=== PATIENT | female | born 1970 | race Hispanic/Latino ===

== ENCOUNTER 2017-03-09 14:35 | Emergency (ER) | payer OTHER ==
[2017-03-09 14:36] VITALS: BMI 46.0
[2017-03-09 14:55] VITALS: TEMP 98.5; O2SAT 98
--- NOTE | 2017-03-09 15:22 | ED PDOC ---
HPI: Female Pain Time Seen by Provider: 03/09/17 15:16 Chief Complaint (Nursing): Female Genitourinary History Per: Patient Onset/Duration Of Symptoms: Days (3) Current Symptoms Are (Timing): Still Present Severity: Moderate Pain Scale Rating Of: 3 Quality Of Discomfort: Burning Associated Symptoms: Urinary Symptoms. denies: Fever, Nausea, Vomiting, Back Pain Additional Complaint(s): Dysuria frequency x 3 days. Denies fever, Nausea or vomiting. Past Medical History Vital Signs: Last Vital Signs Temp 98.5 F 03/09/17 14:52 Pulse 87 03/09/17 14:52 Resp 16 03/09/17 14:52 BP 191/89 H 03/09/17 14:52 Pulse Ox 98 03/09/17 14:52 - Medical History PMH: Arthritis, Asthma, Diabetes, HTN Denies: Chronic Kidney Disease - Surgical History Surgical History: Appendectomy - Family History Family History: States: Unknown Family Hx - Immunization History Hx Tetanus Toxoid Vaccination: No Hx Influenza Vaccination: No Hx Pneumococcal Vaccination: No - Home Medications Home Medications: Ambulatory Orders Medication Instructions Recorded Valsartan [Diovan] 320 mg PO DAILY 04/18/14 Metformin HCl 1,000 mg PO BID 10/15/15 Metoprolol Succinate [Toprol XL] 50 mg PO DAILY 10/15/15 Naproxen [Naprosyn] 500 mg PO BID 10/15/15 Naproxen [Naprosyn] 500 mg PO Q12H #20 tab 10/15/15 SITagliptin [Januvia] 50 mg PO DAILY 10/15/15 traMADol [Ultram] 50 mg PO Q8 #10 tab 10/15/15 Ciprofloxacin HCl [Cipro] 500 mg PO BID #20 tab 03/09/17 - Allergies Allergies/Adverse Reactions: Allergies Allergy/AdvReac Type Severity Reaction Status Date / Time No Known Allergies Allergy Verified 04/18/14 09:27 Review of Systems Constitutional: Negative for: Fever Gastrointestinal: Negative for: Abdominal Pain Genitourinary Female: Positive for: Dysuria, Frequency Musculoskeletal: Negative for: Back Pain Physical Exam - Physical Exam Appears: Positive for: Non-toxic, No Acute Distress Gastrointestinal/Abdominal: Positive for: Bowel Sounds, Soft. Negative for: Tenderness Back: Negative for: L CVA Tenderness, R CVA Tenderness Extremity: Positive for: Normal ROM Neurologic/Psych: Positive for: Oriented - ECG O2 Sat by Pulse Oximetry: 98 Disposition - Clinical Impression Clinical Impression: Urinary tract infection - Patient ED Disposition Is Patient to be Admitted: No Counseled Patient/Family Regarding: Studies Performed, Diagnosis, Need For Followup, Rx Given - Disposition Referrals: [facility] [Outside] Disposition: Routine/Home Disposition Time: 15:35 Condition: FAIR Prescriptions: Ciprofloxacin HCl [Cipro] 500 mg PO BID #20 tab Instructions: Urinary Tract Infection in Women (ED) Forms: [employer] (Singaporean)
[2017-03-09 15:27] VITALS: BP 186/103; PULSE 91; RESP 18
== END 2017-03-09 15:45 | disposition home or self-care (01) ==
LOC: H.ER 14:35
DX: N39.0 Urinary tract infection, site not specified (principal); E11.9 Type 2 diabetes mellitus without complications; I10 Essential (primary) hypertension; J45.909 Unspecified asthma, uncomplicated

== ENCOUNTER 2017-03-18 13:22 | Emergency (ER) | payer OTHER ==
[2017-03-18 13:22] VITALS: BMI 46.0
[2017-03-18 13:30] VITALS: BP 196/80; PULSE 82; RESP 18; TEMP 97.3; O2SAT 99
[2017-03-18] MEDS ORDERED: Albuterol-Ipratrop 3 mg / 0.5 (3 ml) UD INH STA (13:55)
--- NOTE | 2017-03-18 13:58 | ED PDOC ---
HPI: Asthma Time Seen by Provider: 03/18/17 13:34 Chief Complaint (Nursing): Back Pain Chief Complaint (Provider): Asthma History Per: Patient History/Exam Limitations: no limitations Onset/Duration Of Symptoms: Days (x2 days) Current Symptoms Are (Timing): Still Present Additional Complaint(s): 47 year old female with a past medical history of asthma, hypertension, and diabetes who presents to the emergency department with a complaint of coughing, wheezing, and feeling short of breath x2 days. Associated with lower back pain. States that perfume at home was irritating her before she decided to come to the emergency department. Reports taking Extra Strength Tylenol for chronic back pain problems. Denies any prior admission in the back, chest pain, fever, or sputum with cough. Of note, patient tried to see her primary care doctor but he was not in the office today and had finished her asthma pump medication. PMD: Dr. Jose David Friedman MD Past Medical History Reviewed: Historical Data, Nursing Documentation, Vital Signs Vital Signs: Last Vital Signs Temp 97.3 F L 03/18/17 13:27 Pulse 82 03/18/17 13:27 Resp 18 03/18/17 13:27 BP 196/80 H 03/18/17 13:27 Pulse Ox 99 03/18/17 13:27 - Medical History PMH: Arthritis, Asthma, Diabetes, HTN Denies: Chronic Kidney Disease - Surgical History Surgical History: Appendectomy - Family History Family History: States: Diabetes, Hypertension - Social History Current smoker - smoking cessation education provided: No Alcohol: None Drugs: Denies - Immunization History Hx Tetanus Toxoid Vaccination: No Hx Influenza Vaccination: No Hx Pneumococcal Vaccination: No - Home Medications Home Medications: Ambulatory Orders Medication Instructions Recorded Valsartan [Diovan] 320 mg PO DAILY 04/18/14 Metformin HCl 1,000 mg PO BID 10/15/15 Metoprolol Succinate [Toprol XL] 50 mg PO DAILY 10/15/15 Naproxen [Naprosyn] 500 mg PO BID 10/15/15 Naproxen [Naprosyn] 500 mg PO Q12H #20 tab 10/15/15 SITagliptin [Januvia] 50 mg PO DAILY 10/15/15 traMADol [Ultram] 50 mg PO Q8 #10 tab 10/15/15 Ciprofloxacin HCl [Cipro] 500 mg PO BID #20 tab 03/09/17 Albuterol HFA [Ventolin HFA 90 2 puff IH [id number] #1 inh 03/18/17 mcg/actuation (8 g)] Azithromycin [Z-Myron] 250 mg PO ASDIR #6 tab 03/18/17 Prednisone 50 mg PO DAILY #4 tablet 03/18/17 - Allergies Allergies/Adverse Reactions: Allergies Allergy/AdvReac Type Severity Reaction Status Date / Time No Known Allergies Allergy Verified 04/18/14 09:27 Review of Systems ROS Statement: Except As Marked, All Systems Reviewed And Found Negative (As per HPI, otherwise negative) Constitutional: Negative for: Fever Cardiovascular: Negative for: Chest Pain Respiratory: Positive for: Cough, Shortness of Breath. Negative for: Sputum Physical Exam - Reviewed Nursing Documentation Reviewed: Yes Vital Signs Reviewed: Yes - Physical Exam Appears: Positive for: Well, Non-toxic, No Acute Distress Head Exam: Positive for: ATRAUMATIC, NORMAL INSPECTION, NORMOCEPHALIC Skin: Positive for: Normal Color, Warm, Dry ENT: Positive for: Normal ENT Inspection. Negative for: Pharyngeal Erythema Cardiovascular/Chest: Positive for: Regular Rate, Rhythm. Negative for: Murmur Respiratory: Positive for: Normal Breath Sounds. Negative for: Accessory Muscle Use, Wheezing, Respiratory Distress Extremity: Positive for: Normal ROM. Negative for: Pedal Edema Lymphatic: Positive for: Normal Exam. Negative for: Adenopathy Neurologic/Psych: Positive for: Alert, Oriented (x3) - ECG O2 Sat by Pulse Oximetry: 99 (RA) Pulse Ox Interpretation: Normal - Radiology X-Ray: Viewed By Me, Read By Radiologist X-Ray Interpretation: Infiltrates - Progress Re-evaluation Time: 17:06 Condition: Re-examined, Improved Medical Decision Making Medical Decision Making: Time: 1355 Initial Impression: Asthma exacerbation with wheezing and chronic lower back pain Initial Plan: --EKG --Chest x-ray --Duoneb 3 mg INH --Prednisone 60 mg PO --Reevaluation Time: 1455 --Chest x-ray FINDINGS: LUNGS: There is evidence of a small right lower lobe infiltrate consistent with pneumonia. No left lung infiltrates are seen. PLEURA: No significant pleural effusion identified. No pneumothorax apparent. CARDIOVASCULAR: Normal. OSSEOUS STRUCTURES: No significant abnormalities. VISUALIZED UPPER ABDOMEN: Normal. OTHER FINDINGS: None. IMPRESSION: Small right lower lobe pneumonia. No pleural effusion. No CHF. Time: 1707 Upon provider reevaluation patient is feeling better, is medically stable, and requires no further treatment in the ED at this time. Patient will be discharged with Rx for Albuterol HFA 2 puff IH, Azithromycin 250 mg PO, and Prednisone 50 mg daily. Counseling was provided and all questions were answered regarding diagnosis and need for follow up with primary care physician. There is agreement to discharge plan. Return if symptoms persist or worsen. Clinical Impression: Asthma Attack, Pneumonia, and Urinary Tract Infection Scribe~Attestation: Documented by Raina Roy, acting as a scribe for Dorothy García MD. Provider Scribe~Attestation: All medical record entries made by the Scribe were at my direction and personally dictated by me. I have reviewed the chart and agree that the record accurately reflects my personal performance of the history, physical exam, medical decision making, and the department course for this patient. I have also personally directed, reviewed, and agree with the discharge instructions and disposition. Disposition - Clinical Impression Clinical Impression: Asthma attack, Pneumonia, Urinary tract infection - Patient ED Disposition Is Patient to be Admitted: No Doctor Will See Patient In The: Office Counseled Patient/Family Regarding: Studies Performed, Diagnosis, Need For Followup - Disposition Referrals: Jose David Friedman MD [Family Provider] - Disposition: Routine/Home Disposition Time: 17:07 Condition: GOOD Additional Instructions: Take your medications as instructed. Follow up with your PCP in 2-3 days. Prescriptions: Albuterol HFA [Ventolin HFA 90 mcg/actuation (8 g)] 2 puff IH [id number] #1 inh Azithromycin [Z-Myron] 250 mg PO ASDIR #6 tab Prednisone 50 mg PO DAILY #4 tablet Instructions: Asthma (ED), Pneumonia (ED) Forms: [facility] ED School/Work Excuse
--- NOTE | 2017-03-18 14:57 | RAD ---
HISTORY: dyspnea COMPARISON: No prior. TECHNIQUE: Chest PA and lateral FINDINGS: LUNGS: There is evidence of a small right lower lobe infiltrate consistent with pneumonia. No left lung infiltrates are seen. PLEURA: No significant pleural effusion identified. No pneumothorax apparent. CARDIOVASCULAR: Normal. OSSEOUS STRUCTURES: No significant abnormalities. VISUALIZED UPPER ABDOMEN: Normal. OTHER FINDINGS: None. IMPRESSION: Small right lower lobe pneumonia. No pleural effusion. No CHF.
== END 2017-03-18 17:25 | disposition home or self-care (01) ==
LOC: H.ER 13:22
DX: J18.9 Pneumonia, unspecified organism (principal); J45.909 Unspecified asthma, uncomplicated; E11.9 Type 2 diabetes mellitus without complications; G89.29 Other chronic pain; I10 Essential (primary) hypertension

== ENCOUNTER 2017-07-27 13:27 | Emergency (ER) | payer MEDICAID, OTHER ==
[2017-07-27 13:27] VITALS: BMI 46.0
--- NOTE | 2017-07-27 14:26 | ED PDOC ---
HPI: Abdomen Time Seen by Provider: 07/27/17 13:40 Chief Complaint (Nursing): Abdominal Pain Chief Complaint (Provider): Abdominal Pain History Per: Patient History/Exam Limitations: no limitations Onset/Duration Of Symptoms: Days (1) Current Symptoms Are (Timing): Still Present Additional Complaint(s): 47 year old female presents to the emergency department with a complaint of nausea, vomiting, and epigastric abdominal pain x1 day. Describes pain comes in waves, comes and goes. Family also reports experiencing similar symptoms 2 days ago. Denies diarrhea and fever. PMD: Dr. Jose David Friedman MD Past Medical History Reviewed: Historical Data, Nursing Documentation, Vital Signs Vital Signs: Last Vital Signs Temp 97.0 F L 07/27/17 13:35 Pulse 76 07/27/17 15:30 Resp BP 124/78 07/27/17 15:30 Pulse Ox 98 07/27/17 18:38 - Medical History PMH: Arthritis, Asthma, Diabetes, HTN Denies: Chronic Kidney Disease - Surgical History Surgical History: Appendectomy - Family History Family History: States: Unknown Family Hx, Diabetes, Hypertension - Social History Current smoker - smoking cessation education provided: No Alcohol: None Drugs: Denies - Immunization History Hx Tetanus Toxoid Vaccination: No Hx Influenza Vaccination: No Hx Pneumococcal Vaccination: No - Home Medications Home Medications: Ambulatory Orders Medication Instructions Recorded Valsartan [Diovan] 320 mg PO DAILY 04/18/14 Metformin HCl 1,000 mg PO BID 10/15/15 Metoprolol Succinate [Toprol XL] 50 mg PO DAILY 10/15/15 Naproxen [Naprosyn] 500 mg PO BID 10/15/15 SITagliptin [Januvia] 50 mg PO DAILY 10/15/15 - Allergies Allergies/Adverse Reactions: Allergies Allergy/AdvReac Type Severity Reaction Status Date / Time No Known Allergies Allergy Verified 04/18/14 09:27 Review of Systems ROS Statement: Except As Marked, All Systems Reviewed And Found Negative (As per HPI, otherwise negative) Constitutional: Negative for: Fever Gastrointestinal: Positive for: Nausea, Vomiting, Abdominal Pain. Negative for : Diarrhea Physical Exam - Reviewed Nursing Documentation Reviewed: Yes Vital Signs Reviewed: Yes - Physical Exam Appears: Positive for: No Acute Distress Head Exam: Positive for: NORMAL INSPECTION Skin: Positive for: Normal Color, Warm, Dry ENT: Positive for: Normal ENT Inspection Neck: Positive for: Normal Cardiovascular/Chest: Positive for: Regular Rate, Rhythm Respiratory: Positive for: Normal Breath Sounds Gastrointestinal/Abdominal: Positive for: Soft, Tenderness (mild mid epigastric tenderness). Negative for: Normal Exam Extremity: Positive for: Normal ROM Neurologic/Psych: Positive for: Alert, Oriented (x3) - Laboratory Results Result Diagrams: 07/27/17 14:46 07/27/17 14:46 - ECG O2 Sat by Pulse Oximetry: 98 (RA) Pulse Ox Interpretation: Normal Medical Decision Making Medical Decision Making: Time: 1420 Initial impression: Abdominal pain, nausea, and vomiting rule out uti, tule out appendicitis, rule out gastroenteritis Initial plan: --CMP --Lipase --CBC w/ diff --Famotidine 20 mg IVP --Sodium Chloride 1L IV --Ondansetron ODT 4 mg PO --Reevaluation Time: 1446 --WBC: 15.0 (H) pt will need CT ap. Time: 1521 --Insulin 6 units SC Time: 1526 --Iohexol 50 ml PO --Abd Pelvis PO & IV CT Time: 1535 --Morphine 4 mg IV Time: 1556 --Patient feels nauseous. --Ondansetron ODT 4 mg PO Time: 1900 --Patient is transferred to Dr. Dias. --Pending CT scan and reevaluation and repeat glucose. Scribe Attestation: Documented by Raina Roy, acting as a scribe for Anitha Miranda MD Provider Scribe Attestation: All medical record entries made by the Scribe were at my direction and personally dictated by me. I have reviewed the chart and agree that the record accurately reflects my personal performance of the history, physical exam, medical decision making, and the department course for this patient. I have also personally directed, reviewed, and agree with the discharge instructions and disposition. Disposition - Clinical Impression Clinical Impression: Abdominal pain - Patient ED Disposition Is Patient to be Admitted: No - Disposition Disposition: Transfer of Care Disposition Time: 19:00 Condition: STABLE Forms: [employer] (Iranian) Patient Signed Over To: Aldair Dias
[2017-07-27] MEDS ORDERED: Sodium Chloride 0.9% 1,000 ML IV STA (14:34)
[2017-07-27 14:52] LABS: BASO % 0.2 % (0.0-2.0); HEMOGLOBIN 16.7 g/dL (12.0-16.0); LYMPH # 1.4 K/uL (1.0-4.3); LYMPH % 9.1 % (20.0-40.0); MEAN CELL VOLUME 85.1 fl (81.0-99.0); MEAN CORPUSCULAR HEMOGLOBIN 28.5 pg (27.0-31.0); MEAN CORPUSCULAR HGB CONC 33.5 g/dL (33.0-37.0); MEAN PLATELET VOLUME 8.4 fl (7.2-11.7); MONO # 0.3 K/uL (0.0-0.8); MONO % 2.2 % (0.0-10.0); NEUT # 13.3 K/uL (1.8-7.0); NEUT % 88.5 % (50.0-75.0); NRBC % 0.1 % (0.0-0.0); PLATELET COUNT 293 K/uL (130-400); RBC 5.84 Mil/uL (3.80-5.20); RED CELL DISTRIBUTION WIDTH 13.7 % (11.5-14.5)
[2017-07-27 15:07] LABS: ALB/GLOB RATIO 1.1 (1.0-2.1); ALBUMIN 4.5 g/dL (3.5-5.0); ALT/SGPT 51 U/L (9-52); AST/SGOT 33 U/L (14-36); BLOOD UREA NITROGEN 11 mg/dl (7-17); GFR AFRICAN-AMERICAN > 60; GFR NON-AFRICAN AMERICAN > 60; LIPASE 83 U/L (23-300)
[2017-07-27] MEDS ORDERED: Insulin Regular 100 units/ml SC STA (15:21)
[2017-07-27] MEDS ORDERED: Iohexol 240 (50 ml) PO ONE (15:26)
[2017-07-27] MEDS ORDERED: Insulin Regular 100 units/ml ONE (15:29)
[2017-07-27] MEDS ORDERED: Iohexol 240 (50 ml) ONE (15:34)
[2017-07-27 15:37] LABS: LYMPHOCYTE 11 % (20-50); MONOCYTE 2 % (0-10); NEUTROPHIL 87 % (42-75); PLATELET ESTIMATE NORMAL (NORMAL); TOTAL CELLS COUNTED 100
[2017-07-27] MEDS ORDERED: Iohexol 300 100 ML IJ ONE ×2 (16:10→16:34)
[2017-07-27] MEDS ORDERED: Sodium Chloride 0.9% 100 ML ONE (16:34)
--- NOTE | 2017-07-27 19:09 | ED PDOC ---
- Laboratory Results Result Diagrams: 07/27/17 14:46 07/27/17 14:46 - ECG O2 Sat by Pulse Oximetry: 98 (RA) Medical Decision Making Medical Decision Making: Time: 1899 --Patient endorsed from Dr. Welsh to me. --Pending CT scan, reevaluation, and repeat glucose. Time: 2035 --Abd CT FINDINGS: Lung bases: Heart size is normal. There is a hiatal hernia. There is minimal atelectasis or scarring at the lung bases ABDOMEN: Liver: There is fatty infiltration of the liver.The liver is enlarged. Gallbladder and bile ducts: unremarkable Pancreas: unremarkable Spleen: Spleen is mildly enlarged. Adrenals: unremarkable Kidneys and ureters: There is focal right renal scarring. Left kidney is unremarkable. There is no pelvocaliectasis or ureterectasis. Stomach and bowel: Stomach is partially distended with contrast. Rotation is normal. There is no small bowel obstruction. Terminal ileum is unremarkable. Appendix is not visualized. There is no pericecal inflammation. Cecum is low in the pelvis. Colon is incompletely distended which limits evaluation. PELVIS: Appendix: See stomach and bowel Bladder: unremarkable Reproductive: Uterus and adnexal structures are unremarkable. ABDOMEN and PELVIS: Intraperitoneal space: There is no free air or free fluid. Bones/joints: There are no acute osseous abnormalities. There is early degenerative change. Soft tissues: There is a small fat containing umbilical hernia. Vasculature: Vascular structures are unremarkable. Lymph nodes: There is no pathologic adenopathy. IMPRESSION: Hepatosplenomegaly with fatty infiltration liver; no bowel obstruction Additional nonemergent findings as described above 20: 55 -Upon reevaluation patient still has epigastric pain and chest pain, ordered Reglan and Protonix. 22: 40 -Patient reports no improvement of symptoms, ordered Carafate 23:55 -Patient states she feels better. She is medically stable for discharge. Diagnosis is gastritis and GERD. Patient advised to follow up with PMD. Scribe Attestation: Documented by Raina Roy & Martell Clements, acting as a scribe for Aldair Dias MD Provider Scribe Attestation: All medical record entries made by the Scribe were at my direction and personally dictated by me. I have reviewed the chart and agree that the record accurately reflects my personal performance of the history, physical exam, medical decision making, and the department course for this patient. I have also personally directed, reviewed, and agree with the discharge instructions and disposition. Disposition - Clinical Impression Clinical Impression: Gastritis - POA Present On Arrival: None - Disposition Disposition: Routine/Home Disposition Time: 23:55 Condition: STABLE Prescriptions: Esomeprazole Magnesium [Nexium] 20 mg PO QAM #30 ecc Instructions: Gastritis, Stomach Ache and Stomach Upset Forms: [employer] (Turkmen)
[2017-07-27 19:14] LABS: SQUAMOUS EPITHIAL 6 /hpf (0-5); URINE BILIRUBIN NEGATIVE (NEGATIVE); URINE BLOOD SMALL (NEGATIVE); URINE CLARITY SLIGHTY-CLOUDY (Clear); URINE COLOR YELLOW (YELLOW); URINE GLUCOSE (UA) >=500 mg/dL (Normal); URINE LEUKOCYTE ESTERASE NEG Leu/uL (Negative); URINE PROTEIN 100 mg/dL (NEGATIVE); URINE UROBILINOGEN 0.2-1.0 mg/dL (0.2-1.0)
--- NOTE | 2017-07-27 20:36 | CT ---
EXAM: CT Abdomen and Pelvis With Intravenous Contrast EXAM DATE/TIME: 07/27/2017 3:26 PM CLINICAL HISTORY: 47 years old, female; Pain; Abdominal pain; Epigastric; Patient HX: Patient C/O of nausea, vomiting, and epigastric pain TECHNIQUE: Axial computed tomography images of the abdomen and pelvis with intravenous contrast. All CT scans at this facility use one or more dose reduction techniques, viz.: automated exposure control; ma/kV adjustment per patient size (including targeted exams where dose is matched to indication; i.e. head); or iterative reconstruction technique. Coronal and sagittal reformatted images were created and reviewed. CONTRAST: 95 mL of omnipaque 300 administered intravenously. COMPARISON: There are no prior studies for comparison. FINDINGS: Lung bases: Heart size is normal. There is a hiatal hernia. There is minimal atelectasis or scarring at the lung bases ABDOMEN: Liver: There is fatty infiltration of the liver.The liver is enlarged. Gallbladder and bile ducts: unremarkable Pancreas: unremarkable Spleen: Spleen is mildly enlarged. Adrenals: unremarkable Kidneys and ureters: There is focal right renal scarring. Left kidney is unremarkable. There is no pelvocaliectasis or ureterectasis. Stomach and bowel: Stomach is partially distended with contrast. Rotation is normal. There is no small bowel obstruction. Terminal ileum is unremarkable. Appendix is not visualized. There is no pericecal inflammation. Cecum is low in the pelvis. Colon is incompletely distended which limits evaluation. PELVIS: Appendix: See stomach and bowel Bladder: unremarkable Reproductive: Uterus and adnexal structures are unremarkable. ABDOMEN and PELVIS: Intraperitoneal space: There is no free air or free fluid. Bones/joints: There are no acute osseous abnormalities. There is early degenerative change. Soft tissues: There is a small fat containing umbilical hernia. Vasculature: Vascular structures are unremarkable. Lymph nodes: There is no pathologic adenopathy. IMPRESSION: Hepatosplenomegaly with fatty infiltration liver; no bowel obstruction Additional nonemergent findings as described above.
[2017-07-27] MEDS ORDERED: Sucralfate 1 gm/10 ml Oral Susp UD PO STA (22:38)
[2017-07-27] MEDS ORDERED: Sucralfate 1 gm/10 ml Oral Susp UD ONE (22:44)
[2017-07-28 00:14] VITALS: BP 163/70; PULSE 99; RESP 18; TEMP 98.3
[2017-07-28 01:36] VITALS: O2SAT 98
== END 2017-07-28 00:20 | disposition home or self-care (01) ==
LOC: H.ER 13:27
DX: K29.70 Gastritis, unspecified, without bleeding (principal); E11.9 Type 2 diabetes mellitus without complications; I10 Essential (primary) hypertension; J45.909 Unspecified asthma, uncomplicated; K21.9 Gastro-esophageal reflux disease without esophagitis; K76.0 Fatty (change of) liver, not elsewhere classified; Z79.4 Long term (current) use of insulin
CPT/HCPCS: 74177; 80053; 81003; 81025; 82948; 83690; 85025; 87086; 96361; 96374; 96375; 99284; C9113; J2765; J7040; Q9966; Q9967

== ENCOUNTER 2017-07-29 14:06 | Inpatient (IN) | payer MEDICAID ==
[2017-07-29 14:06] VITALS: BMI 46.0
[2017-07-29] MEDS ORDERED: Sodium Chloride 0.9% 1,000 ML IV STA ×2 (14:33→17:14)
--- NOTE | 2017-07-29 14:40 | ED PDOC ---
HPI: Abdomen Time Seen by Provider: 07/29/17 14:32 Chief Complaint (Nursing): GI Problem Chief Complaint (Provider): Abdominal Pain History Per: Patient History/Exam Limitations: no limitations Onset/Duration Of Symptoms: Days (x3) Current Symptoms Are (Timing): Still Present Additional Complaint(s): 47 year old female presented to ED complaining of abdominal pain with onset of . Patient reports she came to this hospital a few days ago but upon returning home, symptoms returned. Patient indicates taking nexium today and vomiting immediately after. Denies fever, chills and diarrhea. PCP: Jose David Hurtado Past Medical History Reviewed: Historical Data, Nursing Documentation, Vital Signs Vital Signs: Last Vital Signs Temp 97.9 F 07/29/17 18:56 Pulse 90 07/29/17 19:24 Resp 19 07/29/17 18:56 BP 157/85 H 07/29/17 18:56 Pulse Ox 100 07/29/17 19:24 - Medical History PMH: Arthritis, Asthma, Diabetes, HTN Denies: Chronic Kidney Disease - Surgical History Surgical History: Appendectomy - Family History Family History: States: Unknown Family Hx, Diabetes, Hypertension - Immunization History Hx Tetanus Toxoid Vaccination: No Hx Influenza Vaccination: No Hx Pneumococcal Vaccination: No - Home Medications Home Medications: Ambulatory Orders Medication Instructions Recorded Valsartan [Diovan] 320 mg PO DAILY 04/18/14 Metformin HCl 1,000 mg PO BID 10/15/15 Metoprolol Succinate [Toprol XL] 50 mg PO DAILY 10/15/15 Naproxen [Naprosyn] 500 mg PO BID 10/15/15 SITagliptin [Januvia] 50 mg PO DAILY 10/15/15 Esomeprazole Magnesium [Nexium] 20 mg PO QAM #30 ecc 07/27/17 - Allergies Allergies/Adverse Reactions: Allergies Allergy/AdvReac Type Severity Reaction Status Date / Time No Known Allergies Allergy Verified 04/18/14 09:27 Review of Systems ROS Statement: Except As Marked, All Systems Reviewed And Found Negative Constitutional: Negative for: Fever, Chills Gastrointestinal: Positive for: Vomiting, Abdominal Pain. Negative for: Diarrhea Physical Exam - Reviewed Nursing Documentation Reviewed: Yes Vital Signs Reviewed: Yes - Physical Exam Appears: Positive for: Non-toxic Head Exam: Positive for: ATRAUMATIC, NORMAL INSPECTION, NORMOCEPHALIC Skin: Positive for: Normal Color Eye Exam: Positive for: Normal appearance Neck: Positive for: Normal, Painless ROM Gastrointestinal/Abdominal: Positive for: Tenderness (RUQ, epigastric tenderness ) Extremity: Positive for: Normal ROM Neurologic/Psych: Positive for: Alert, Oriented - Laboratory Results Result Diagrams: 07/29/17 15:39 07/29/17 15:39 - ECG ECG: Positive for: Interpreted By Me, Viewed By Me ECG Rhythm: Positive for: Sinus Rhythm (normal). Negative for: ST/T Changes Interpretation Of ECG: T wave inversion at lead III. Rate: 90 O2 Sat by Pulse Oximetry: 100 (RA) Pulse Ox Interpretation: Normal - Progress ED Course And Treament: FINDINGS: LIVER: Measures 24 cm in length. Diffusely increased echogenicity of the liver parenchyma. Consistent with fatty infiltration. Smooth contour. No mass. No intrahepatic biliary ductal dilatation. GALLBLADDER: Cholelithiasis. Thickened wall, up to 5 mm. No pericholecystic fluid. Negative sonographic Zendejas sign. Findings equivocal for cholecystitis. COMMON BILE DUCT: Measures 5 mm. No stones. No dilatation. PANCREAS: Unremarkable as visualized. No mass. No ductal dilatation. RIGHT KIDNEY: Measures 12.2 cm in length. Normal echogenicity. No calculus, mass, or hydronephrosis. AORTA: No aneurysmal dilatation. IVC: Unremarkable. OTHER FINDINGS: None . IMPRESSION: Hepatomegaly with fatty infiltration of the liver. Cholelithiasis with nonspecific mural thickening but no other signs to suggest cholecystitis. ns 1 liter x 2 morphine 4 mg iv x 1 dose pepcid 20 mg i vx 1 dose zofran 4 mg odt re-evaluated with persistent ruq tenderness noted. SEEN BY SURGERY. D/W DR. CHAHAL. WILL D/W DR. ZULETA FOR ADMISSION AND SURGERY TOMORROW. D/W DR. ZULETA ZOSYN 3.375GM IV X 1 DOSE Medical Decision Making Medical Decision Making: Initial Impression: Abdominal pain Initial Plan: ECG CMP Lipase Troponin ED urine ED urine dipstick CBC Famotidine 20mg IV Morphine 4mg IV Sodium chloride 1000mL IV Ondansetron 4mg PO US abdomen Scribe Attestation: Documented by Dov Martinez acting as a scribe for Alan EDWARDS. Provider Scribe Attestation: All medical record entries made by the Scribe were at my direction and personally dictated by me. I have reviewed the chart and agree that the record accurately reflects my personal performance of the history, physical exam, medical decision making, and the department course for this patient. I have also personally directed, reviewed, and agree with the discharge instructions and disposition. Disposition - Clinical Impression Clinical Impression: Cholecystitis - Patient ED Disposition Is Patient to be Admitted: Yes - Disposition Disposition Time: 19:24 Condition: FAIR
[2017-07-29] MEDS ORDERED: Morphine 4 MG/ML VIAL ONE (14:58)
[2017-07-29] MEDS ORDERED: Famotidine 20mg/50ml 20 MG in Premixed IV 50 EA IVPB STA (15:28)
[2017-07-29 15:42] LABS: BASO # 0.1 K/uL (0.0-0.2); BASO % 0.6 % (0.0-2.0); EOS # 0.1 K/uL (0.0-0.7); EOS % 0.8 % (0.0-4.0); HEMOGLOBIN 16.7 g/dL (12.0-16.0); LYMPH # 1.6 K/uL (1.0-4.3); LYMPH % 13.9 % (20.0-40.0); MEAN CELL VOLUME 85.5 fl (81.0-99.0); MEAN CORPUSCULAR HEMOGLOBIN 28.9 pg (27.0-31.0); MEAN CORPUSCULAR HGB CONC 33.9 g/dL (33.0-37.0); MEAN PLATELET VOLUME 7.8 fl (7.2-11.7); MONO # 0.5 K/uL (0.0-0.8); MONO % 4.8 % (0.0-10.0); NEUT # 9.3 K/uL (1.8-7.0); NEUT % 79.9 % (50.0-75.0); NRBC % 0.1 % (0.0-0.0); RBC 5.77 Mil/uL (3.80-5.20); RED CELL DISTRIBUTION WIDTH 13.8 % (11.5-14.5); WHITE BLOOD COUNT 11.6 K/uL (4.8-10.8)
[2017-07-29] MEDS ORDERED: Morphine 4 MG/ML VIAL IV ONE (15:45)
[2017-07-29 16:00] LABS: VENOUS BLOOD GAS BASE EXCESS 5.5 mmol/L (0.0-2.0); VENOUS BLOOD GAS PCO2 51 mmHg (40-60); VENOUS BLOOD GAS PO2 23 mm/Hg (30-55)
[2017-07-29 16:12] LABS: ALB/GLOB RATIO 1.1 (1.0-2.1); ALBUMIN 4.3 g/dL (3.5-5.0); ALT/SGPT 54 U/L (9-52); AST/SGOT 34 U/L (14-36); BLOOD UREA NITROGEN 17 mg/dl (7-17); CALCIUM 9.1 mg/dL (8.4-10.2); GFR AFRICAN-AMERICAN > 60; GFR NON-AFRICAN AMERICAN > 60; LIPASE 79 U/L (23-300)
[2017-07-29] MEDS ORDERED: Famotidine 20mg/50ml 20 MG/50 ML BAG IVPB ONE (16:12)
--- NOTE | 2017-07-29 17:27 | US ---
HISTORY: ruq pain COMPARISON: None. TECHNIQUE: Sonographic evaluation of the right upper quadrant of the abdomen. FINDINGS: LIVER: Measures 24 cm in length. Diffusely increased echogenicity of the liver parenchyma. Consistent with fatty infiltration. Smooth contour. No mass. No intrahepatic biliary ductal dilatation. GALLBLADDER: Cholelithiasis. Thickened wall, up to 5 mm. No pericholecystic fluid. Negative sonographic Zendejas sign. Findings equivocal for cholecystitis. COMMON BILE DUCT: Measures 5 mm. No stones. No dilatation. PANCREAS: Unremarkable as visualized. No mass. No ductal dilatation. RIGHT KIDNEY: Measures 12.2 cm in length. Normal echogenicity. No calculus, mass, or hydronephrosis. AORTA: No aneurysmal dilatation. IVC: Unremarkable. OTHER FINDINGS: None . IMPRESSION: Hepatomegaly with fatty infiltration of the liver. Cholelithiasis with nonspecific mural thickening but no other signs to suggest cholecystitis.
[2017-07-29] MEDS ORDERED: Piperacillin/Tazobact 3.375 GM in Sodium Chloride 0.9% 100 ML IVPB STA (19:09)
[2017-07-29] MEDS ORDERED: HYDROmorphone 0.5 mg/0.5 ml ISec IVP PRN (19:20)
--- NOTE | 2017-07-29 19:38 | CP.PCM.CON ---
<Rodrick Spears - Last Filed: 07/29/17 21:23> History of Present Illness - History of Present Illness History of Present Illness: Surgery 47 F w PMH of obesity (BMI 45) and hiatal hernia came with persistent epigastric and RUQ pain started 5 days ago. Pain started around epigastric area and now pain is more around the RUQ. Sudden onset of pain worsening after eating. Pain is dull and burning. Tried nexium but didn't relieve the pain. Pain also radiates to the back. Associated with nausea and vomiting. Non bilious and non bloody. Pt went to ED in [facility] [place] when pain started , had the CT taken, she was diagnosed with gastroenteritis and was sent home. two days later , pt came to [place] ED, with persistent abdominal pain and vomiting. CT was taken and CT result was unremarkable except hepatomegaly and fatty liver. She was sent home with Nexium. Pain became worsen and pt presented today again at [place] ED. Denies fever, chills, diarrhea, hematemesis, hematochezia, hematuria , melena. Pt has EGD in 2015 the past to evaluate for weight loss surgery and showed hiatal hernia. Pt didn't undergo sx. Patient doesn;t usually take PPI. US shows cholelithiasis and thicken GB wall. Surgery is consulted to evaluate for cholecystitis. PHM : DM , HTN, Asthma, obesity, hiatal hernia, H pylori PSH: appendectomy , x3 SS: former smoker, social etOH, denies elicit drug use. Review of Systems - Review of Systems Review of Systems: See HPI Past Patient History - Infectious Disease Hx of Infectious Diseases: None - Past Medical History & Family History Past Medical History?: Yes - Past Social History Smoking Status: Former Smoker Alcohol: Occasional Drugs: Denies - CARDIAC Hx Hypertension: Yes - PULMONARY Hx Asthma: Yes - NEUROLOGICAL Hx Neurological Disorder: No - HEENT Hx HEENT Problems: No - RENAL Hx Chronic Kidney Disease: No - ENDOCRINE/METABOLIC Hx Endocrine Disorders: Yes Hx Diabetes Mellitus Type 2: Yes - HEMATOLOGICAL/ONCOLOGICAL Hx Blood Disorders: No - INTEGUMENTARY Hx Dermatological Problems: No - MUSCULOSKELETAL/RHEUMATOLOGICAL Hx Arthritis: Yes - GASTROINTESTINAL Hx Gastrointestinal Disorders: Yes Other/Comment: DIARRHEA,RECTAL BLEEDING - GENITOURINARY/GYNECOLOGICAL Hx Genitourinary Disorders: No - PSYCHIATRIC Hx Psychophysiologic Disorder: No Hx Substance Use: No - SURGICAL HISTORY Hx Appendectomy: Yes - ANESTHESIA Hx Anesthesia: Yes Hx Anesthesia Reactions: Yes (NAUSEA/VOMITING) Hx Malignant Hyperthermia: No Meds Allergies/Adverse Reactions: Allergies Allergy/AdvReac Type Severity Reaction Status Date / Time No Known Allergies Allergy Verified 04/18/14 09:27 - Medications Medications: Current Medications Hydromorphone HCl (Dilaudid) 1 mg IVP Q4 PRN PRN Reason: Pain, severe (8-10) Piperacillin Sod/Tazobactam (Sod 3.375 gm/ Sodium Chloride) 100 mls @ 100 mls/ hr IVPB STAT STA PRN Reason: Protocol Stop: 07/29/17 20:08 Sodium Chloride (Sodium Chloride 0.9%) 1,000 mls @ 150 mls/hr IV .Q6H40M [facility] Stop: 07/30/17 19:18 Ondansetron HCl (Zofran Inj) 4 mg IVP Q4 PRN PRN Reason: Nausea/Vomiting Physical Exam - Constitutional Appears: No Acute Distress - Head Exam Head Exam: ATRAUMATIC, NORMAL INSPECTION, NORMOCEPHALIC - Eye Exam Eye Exam: EOMI, Normal appearance, PERRL Pupil Exam: NORMAL ACCOMODATION, PERRL - ENT Exam ENT Exam: Mucous Membranes Moist, Normal Exam - Neck Exam Neck exam: Positive for: Normal Inspection - Respiratory Exam Respiratory Exam: Clear to Auscultation Bilateral, NORMAL BREATHING PATTERN - Cardiovascular Exam Cardiovascular Exam: REGULAR RHYTHM - GI/Abdominal Exam GI & Abdominal Exam: Normal Bowel Sounds, Soft, Tenderness. absent: Distended, Firm, Guarding, Rigid Additional comments: Epigastric TTP. RUQ TTP . Obese - Extremities Exam Extremities exam: Positive for: full ROM, normal inspection - Back Exam Back exam: NORMAL INSPECTION - Neurological Exam Neurological exam: Alert, CN II-XII Intact, Normal Gait, Oriented x3, Reflexes Normal - Psychiatric Exam Psychiatric exam: Normal Affect, Normal Mood - Skin Skin Exam: Dry, Intact, Normal Color, Warm Results - Vital Signs Recent Vital Signs: Last Vital Signs Temp 97.9 F 07/29/17 18:56 Pulse 90 07/29/17 19:06 Resp 19 07/29/17 18:56 BP 157/85 H 07/29/17 18:56 Pulse Ox 100 07/29/17 19:06 - Labs Result Diagrams: 07/29/17 15:39 07/29/17 15:39 Labs: Laboratory Results - last 24 hr 07/29/17 07/29/17 07/29/17 15:39 15:39 15:57 WBC 11.6 H RBC 5.77 H Hgb 16.7 H Hct 49.3 H MCV 85.5 MCH 28.9 MCHC 33.9 RDW 13.8 Plt Count 266 MPV 7.8 Neut % (Auto) 79.9 H Lymph % (Auto) 13.9 L [place] % (Auto) 4.8 Eos % (Auto) 0.8 Baso % (Auto) 0.6 Neut # (Auto) 9.3 H Lymph # (Auto) 1.6 [place] # (Auto) 0.5 Eos # (Auto) 0.1 Baso # (Auto) 0.1 pO2 23 L VBG pH 7.40 VBG pCO2 51 VBG HCO3 27.7 VBG Total CO2 33.2 H VBG O2 Sat (Calc) 46.2 VBG Base Excess 5.5 H VBG Potassium 3.7 Glucose 165 H Lactate 1.8 FiO2 21.0 Sodium 140 136.0 Potassium 3.7 Chloride 96 L 99.0 Carbon Dioxide 27 Anion Gap 21 H BUN 17 Creatinine 0.6 L Est GFR ( Amer) > 60 Est GFR (Non-Af Amer) > 60 Random Glucose 164 H Calcium 9.1 Total Bilirubin 0.7 AST 34 ALT 54 H Alkaline Phosphatase 99 Troponin I 0.0500 Total Protein 8.4 H Albumin 4.3 Globulin 4.1 H Albumin/Globulin Ratio 1.1 Lipase 79 Venous Blood Potassium 3.7 Assessment & Plan - Assessment and Plan (Free Text) Assessment: 47 F w h/o H pylori and hiatal hernia : Symptomatic cholelithiasis v Cholecystitis Leukocytosis improved from previous visit: 15k-> 11.6k US: cholelithiasis with gallbladder wall thickening -CLD , NPO after midnight -Possible OR for lap skip -IVF -ABX -Nausea/pain control -f/u H pylori ag -CBC/ CMP / coag in AM DW Dr. Jeter <Trevin Jeter - Last Filed: 07/30/17 14:23> Meds - Medications Medications: Current Medications Hydromorphone HCl (Dilaudid) 1 mg IVP Q4 PRN PRN Reason: Pain, severe (8-10) Sodium Chloride (Sodium Chloride 0.9%) 1,000 mls @ 150 mls/hr IV .Q6H40M [facility] Stop: 07/30/17 19:18 Last Admin: 07/30/17 02:10 Dose: Not Given Lactated Ringer's (Lactated Ringer's) 1,000 mls @ 150 mls/hr IV .Q6H40M [facility] Last Admin: 07/30/17 05:38 Dose: 150 mls/hr Acetaminophen (Ofirmev) 100 mls @ 400 mls/hr IVPB ONCE ONE PRN Reason: Protocol Stop: 07/30/17 14:29 Ondansetron HCl (Zofran Inj) 4 mg IVP Q4 PRN PRN Reason: Nausea/Vomiting Ondansetron HCl (Zofran Odt) 4 mg PO Q8H PRN PRN Reason: Nausea/Vomiting Pantoprazole Sodium (Protonix Inj) 40 mg IVP DAILY [facility] Last Admin: 07/30/17 10:36 Dose: 40 mg Results - Vital Signs Recent Vital Signs: Last Vital Signs Temp 98.0 F 07/30/17 13:57 Pulse 89 07/30/17 13:57 Resp 18 07/30/17 13:57 BP 162/84 H 07/30/17 13:57 Pulse Ox 97 07/30/17 13:57 - Labs Result Diagrams: 07/30/17 11:00 07/30/17 11:00 Labs: Laboratory Results - last 24 hr 07/29/17 07/29/17 07/29/17 15:32 15:39 15:39 WBC 11.6 H RBC 5.77 H Hgb 16.7 H Hct 49.3 H MCV 85.5 MCH 28.9 MCHC 33.9 RDW 13.8 Plt Count 266 MPV 7.8 Neut % (Auto) 79.9 H Lymph % (Auto) 13.9 L [place] % (Auto) 4.8 Eos % (Auto) 0.8 Baso % (Auto) 0.6 Neut # (Auto) 9.3 H Lymph # (Auto) 1.6 [place] # (Auto) 0.5 Eos # (Auto) 0.1 Baso # (Auto) 0.1 PT INR APTT pO2 VBG pH VBG pCO2 VBG HCO3 VBG Total CO2 VBG O2 Sat (Calc) VBG Base Excess VBG Potassium Glucose Lactate FiO2 Sodium 140 Potassium 3.7 Chloride 96 L Carbon Dioxide 27 Anion Gap 21 H BUN 17 Creatinine 0.6 L Est GFR ( Amer) > 60 Est GFR (Non-Af Amer) > 60 POC Glucose (mg/dL) 147 H Random Glucose 164 H Calcium 9.1 Total Bilirubin 0.7 AST 34 ALT 54 H Alkaline Phosphatase 99 Troponin I 0.0500 Total Protein 8.4 H Albumin 4.3 Globulin 4.1 H Albumin/Globulin Ratio 1.1 Lipase 79 Venous Blood Potassium Blood Type Blood Type Confirm Antibody Screen BBK History Checked 07/29/17 07/29/17 07/29/17 15:57 20:20 20:20 WBC RBC Hgb Hct MCV MCH MCHC RDW Plt Count MPV Neut % (Auto) Lymph % (Auto) [place] % (Auto) Eos % (Auto) Baso % (Auto) Neut # (Auto) Lymph # (Auto) [place] # (Auto) Eos # (Auto) Baso # (Auto) PT 1.1 L INR 1.1 APTT 31.7 pO2 23 L VBG pH 7.40 VBG pCO2 51 VBG HCO3 27.7 VBG Total CO2 33.2 H VBG O2 Sat (Calc) 46.2 VBG Base Excess 5.5 H VBG Potassium 3.7 Glucose 165 H Lactate 1.8 FiO2 21.0 Sodium 136.0 Potassium Chloride 99.0 Carbon Dioxide Anion Gap BUN Creatinine Est GFR ( Amer) Est GFR (Non-Af Amer) POC Glucose (mg/dL) Random Glucose Calcium Total Bilirubin AST ALT Alkaline Phosphatase Troponin I Total Protein Albumin Globulin Albumin/Globulin Ratio Lipase Venous Blood Potassium 3.7 Blood Type A POSITIVE Blood Type Confirm Antibody Screen Negative BBK History Checked No verified bt 07/30/17 07/30/17 07/30/17 01:37 06:26 11:00 WBC 9.6 RBC 5.15 Hgb 14.9 Hct 44.3 MCV 86.2 MCH 28.9 MCHC 33.6 RDW 13.5 Plt Count 214 MPV Neut % (Auto) Lymph % (Auto) [place] % (Auto) Eos % (Auto) Baso % (Auto) Neut # (Auto) Lymph # (Auto) [place] # (Auto) Eos # (Auto) Baso # (Auto) PT INR APTT pO2 VBG pH VBG pCO2 VBG HCO3 VBG Total CO2 VBG O2 Sat (Calc) VBG Base Excess VBG Potassium Glucose Lactate FiO2 Sodium Potassium Chloride Carbon Dioxide Anion Gap BUN Creatinine Est GFR ( Amer) Est GFR (Non-Af Amer) POC Glucose (mg/dL) 134 H Random Glucose Calcium Total Bilirubin AST ALT Alkaline Phosphatase Troponin I Total Protein Albumin Globulin Albumin/Globulin Ratio Lipase Venous Blood Potassium Blood Type Blood Type Confirm A POSITIVE Antibody Screen BBK History Checked 07/30/17 07/30/17 11:00 11:14 WBC RBC Hgb Hct MCV MCH MCHC RDW Plt Count MPV Neut % (Auto) Lymph % (Auto) [place] % (Auto) Eos % (Auto) Baso % (Auto) Neut # (Auto) Lymph # (Auto) [place] # (Auto) Eos # (Auto) Baso # (Auto) PT INR APTT pO2 VBG pH VBG pCO2 VBG HCO3 VBG Total CO2 VBG O2 Sat (Calc) VBG Base Excess VBG Potassium Glucose Lactate FiO2 Sodium 139 Potassium 4.8 Chloride 99 Carbon Dioxide 26 Anion Gap 19 BUN 17 Creatinine 0.6 L Est GFR ( Amer) > 60 Est GFR (Non-Af Amer) > 60 POC Glucose (mg/dL) 128 H Random Glucose 129 H Calcium 8.0 L Total Bilirubin 1.1 AST 49 H D ALT 45 Alkaline Phosphatase 62 Troponin I Total Protein 7.5 Albumin 3.7 Globulin 3.8 Albumin/Globulin Ratio 1.0 Lipase Venous Blood Potassium Blood Type Blood Type Confirm Antibody Screen BBK History Checked Assessment & Plan - Assessment and Plan (Free Text) Plan: I personally saw and examined the patient with the resident staff and agree with the above assessment and plan. 47 Female, morbid obesity (BMI 45-50), HTN (2 medications), Diabetes - well controlled (Metformin 1000mg qd; Invokana) with 1 week of progressing worsening symptomatic chlelithiasis and 3 ED visits in the last week. I personally reviewed the CT and Ultrasound imaging and reports. CT evidence of dilated gallbladder and US shows multiple stones, wall thickening and 2.5cm stone at gallbladder neck. She will be taken to the operating room for laparoscopic, possible open, cholecystectomy, possible cholangiogram under GETA. I discussed the risks and benefits of the operation including, but not limited to, bleeding, infection, bile duct injury, injury to bowel or nearby structures. She understands these risks and wishes to proceed. Informed consent was obtained and signed at bedside. - Date & Time Date: 07/30/17 Time: 12:00
[2017-07-29] MEDS ORDERED: Piperacillin/Tazobact 3.375 gm Inj IVPB ONE (19:44)
[2017-07-29 20:45] LABS: INR 1.1 (0.9-1.2); PARTIAL THROMBOPLASTIN TIME 31.7 Seconds (25.6-37.1); PROTHROMBIN TIME 1.1 Seconds (9.8-13.1)
[2017-07-29] MEDS: Sodium Chloride 0.9% 1,000 ML IV SCH (21:17)
[2017-07-30] MEDS: Sodium Chloride 0.9% 1,000 ML IV SCH (02:10)
[2017-07-30] MEDS: Lactated Ringer's 1,000 ML IV SCH ×2 (04:25→05:38)
[2017-07-30] MEDS ORDERED: Pneumococcal 23-Valent Vaccine IM ONE (06:35)
[2017-07-30 11:11] LABS: HEMOGLOBIN 14.9 g/dL (12.0-16.0); MEAN CELL VOLUME 86.2 fl (81.0-99.0); MEAN CORPUSCULAR HEMOGLOBIN 28.9 pg (27.0-31.0); MEAN CORPUSCULAR HGB CONC 33.6 g/dL (33.0-37.0); RBC 5.15 Mil/uL (3.80-5.20); RED CELL DISTRIBUTION WIDTH 13.5 % (11.5-14.5); WHITE BLOOD COUNT 9.6 K/uL (4.8-10.8)
[2017-07-30 11:22] LABS: ALBUMIN 3.7 g/dL (3.5-5.0); ALT/SGPT 45 U/L (9-52); AST/SGOT 49 U/L (14-36); BLOOD UREA NITROGEN 17 mg/dl (7-17); GFR AFRICAN-AMERICAN > 60; GFR NON-AFRICAN AMERICAN > 60
--- NOTE | 2017-07-30 11:37 | CP.PCM.PN ---
<Rodrick Spears - Last Filed: 07/30/17 11:30> Subjective - Date & Time of Evaluation Date of Evaluation: 07/30/17 Time of Evaluation: 11:30 - Subjective Subjective: Surgery Pt seen and examined. Pain controlled. REports nausea. No vomiting. + voiding. Objective - Vital Signs/Intake and Output Vital Signs (last 24 hours): Temp Pulse Resp BP Pulse Ox 97.9 F 70 18 145/56 L 97 07/30/17 07:43 07/30/17 07:43 07/30/17 07:43 07/30/17 07:43 07/30/17 07:43 - Medications Medications: Current Medications Acetaminophen (Tylenol 325 Mg Supp) 325 mg ID ONCE ONE Stop: 07/30/17 11:30 Hydromorphone HCl (Dilaudid) 1 mg IVP Q4 PRN PRN Reason: Pain, severe (8-10) Sodium Chloride (Sodium Chloride 0.9%) 1,000 mls @ 150 mls/hr IV .Q6H40M [facility] Stop: 07/30/17 19:18 Last Admin: 07/30/17 02:10 Dose: Not Given Lactated Ringer's (Lactated Ringer's) 1,000 mls @ 150 mls/hr IV .Q6H40M [facility] Last Admin: 07/30/17 05:38 Dose: 150 mls/hr Piperacillin Sod/Tazobactam (Sod 2.25 gm/ Sodium Chloride) 100 mls @ 100 mls/ hr IVPB 0000,0600,1200,1800 [facility] PRN Reason: Protocol Last Admin: 07/30/17 05:40 Dose: 100 mls/hr Ondansetron HCl (Zofran Inj) 4 mg IVP Q4 PRN PRN Reason: Nausea/Vomiting Pantoprazole Sodium (Protonix Inj) 40 mg IVP DAILY [facility] Last Admin: 07/30/17 10:36 Dose: 40 mg - Labs Labs: 07/30/17 11:00 07/30/17 11:00 PT 1.1 Seconds (9.8-13.1) L 07/29/17 20:20 INR 1.1 (0.9-1.2) 07/29/17 20:20 APTT 31.7 Seconds (25.6-37.1) 07/29/17 20:20 - Constitutional Appears: No Acute Distress - Head Exam Head Exam: ATRAUMATIC, NORMAL INSPECTION, NORMOCEPHALIC - Eye Exam Eye Exam: EOMI, Normal appearance, PERRL Pupil Exam: NORMAL ACCOMODATION, PERRL - ENT Exam ENT Exam: Mucous Membranes Moist, Normal Exam - Neck Exam Neck Exam: Full ROM, Normal Inspection. absent: Lymphadenopathy - Respiratory Exam Respiratory Exam: Clear to Ausculation Bilateral, NORMAL BREATHING PATTERN - Cardiovascular Exam Cardiovascular Exam: REGULAR RHYTHM, +S1, +S2. absent: Murmur - GI/Abdominal Exam GI & Abdominal Exam: Soft, Tenderness, Normal Bowel Sounds. absent: Distended Additional comments: Epigastric , RUQ TTP - Exam Exam: NORMAL INSPECTION - Extremities Exam Extremities Exam: Full ROM, Normal Capillary Refill, Normal Inspection. absent : Joint Swelling, Pedal Edema - Back Exam Back Exam: NORMAL INSPECTION - Neurological Exam Neurological Exam: Alert, Awake, CN II-XII Intact, Normal Gait, Oriented x3 - Psychiatric Exam Psychiatric exam: Normal Affect, Normal Mood - Skin Skin Exam: Dry, Intact, Normal Color, Warm Assessment and Plan - Assessment and Plan (Free Text) Assessment: symptomatic cholelithiasis v cholecystitis v Gastritis -NPO -IVF -ABX DW Dr. Jeter <Trevin Jeter - Last Filed: 07/30/17 14:24> Subjective - Subjective Subjective: I personally saw and examined the patient with the resident staff. Plan per my addendum in H+P. Objective - Vital Signs/Intake and Output Vital Signs (last 24 hours): Temp Pulse Resp BP Pulse Ox 98.0 F 89 18 162/84 H 97 07/30/17 13:57 07/30/17 13:57 07/30/17 13:57 07/30/17 13:57 07/30/17 13:57 - Medications Medications: Current Medications Hydromorphone HCl (Dilaudid) 1 mg IVP Q4 PRN PRN Reason: Pain, severe (8-10) Sodium Chloride (Sodium Chloride 0.9%) 1,000 mls @ 150 mls/hr IV .Q6H40M [facility] Stop: 07/30/17 19:18 Last Admin: 07/30/17 02:10 Dose: Not Given Lactated Ringer's (Lactated Ringer's) 1,000 mls @ 150 mls/hr IV .Q6H40M [facility] Last Admin: 07/30/17 05:38 Dose: 150 mls/hr Acetaminophen (Ofirmev) 100 mls @ 400 mls/hr IVPB ONCE ONE PRN Reason: Protocol Stop: 07/30/17 14:29 Piperacillin Sod/Tazobactam (Sod 3.375 gm/ Sodium Chloride) 100 mls @ 100 mls/ hr IVPB Q6 [facility] PRN Reason: Protocol Ondansetron HCl (Zofran Inj) 4 mg IVP Q4 PRN PRN Reason: Nausea/Vomiting Ondansetron HCl (Zofran Odt) 4 mg PO Q8H PRN PRN Reason: Nausea/Vomiting Pantoprazole Sodium (Protonix Inj) 40 mg IVP DAILY [facility] Last Admin: 07/30/17 10:36 Dose: 40 mg - Labs Labs: 07/30/17 11:00 07/30/17 11:00 PT 1.1 Seconds (9.8-13.1) L 07/29/17 20:20 INR 1.1 (0.9-1.2) 07/29/17 20:20 APTT 31.7 Seconds (25.6-37.1) 07/29/17 20:20
[2017-07-30] MEDS ORDERED: Propofol 10 mg/ml Inj (20 ML) ONE (13:51)
[2017-07-30] MEDS ORDERED: Lidocaine 4% (Laryng-O-Jet) Kit MM ONE (13:51)
[2017-07-30] MEDS ORDERED: Rocuronium 10 mg/ml (5 ml) ONE ×3 (13:51→16:47)
[2017-07-30] MEDS ORDERED: Succinylcholine 200 mg/10 ml Inj IV ONE (13:51)
[2017-07-30] MEDS ORDERED: Ketamine 50 mg/ml Inj (10 ml) ONE (14:26)
[2017-07-30] MEDS ORDERED: Midazolam 2 MG/2 ML VIAL ONE (14:57)
[2017-07-30] MEDS ORDERED: Piperacillin/Tazobact 2.25 gm Inj IVPB ONE (15:10)
[2017-07-30] MEDS ORDERED: Dexamethasone 4 mg/1 ml ONE (15:18)
[2017-07-30] MEDS: Bupivacaine HCl 0.5% PF (30 ml) Inj ONE ×2 (15:24→17:11)
[2017-07-30] MEDS ORDERED: Desflurane Inhalation Anesthetic Liq (240 ml) ONE (15:25)
[2017-07-30] MEDS ORDERED: Iohexol 300 100 ML IJ ONE (15:34)
--- NOTE | 2017-07-30 15:42 | RAD ---
PROCEDURE: CHEST RADIOGRAPH, 1 VIEW HISTORY: routine COMPARISON: 03/18/2017 FINDINGS: LUNGS: Clear. PLEURA: No pneumothorax or pleural fluid seen. CARDIOVASCULAR: Normal. OSSEOUS STRUCTURES: No significant abnormalities. VISUALIZED UPPER ABDOMEN: Normal. OTHER FINDINGS: None. IMPRESSION: No active disease.
[2017-07-30] MEDS ORDERED: Lactated Ringer's 1,000 ML IV ONE ×3 (15:56→17:07)
[2017-07-30] MEDS ORDERED: Sodium Chloride 0.9% 3,000 ML IV ONE (15:59)
[2017-07-30] MEDS ORDERED: Lactated Ringer's 1,000 ML IV SCH (17:30)
[2017-07-30] MEDS ORDERED: Trimethobenzamide 200 mg/2 mL Inj IM ONE (17:31)
--- NOTE | 2017-07-30 17:36 | PCM.SURG1 ---
Surgeon's Initial Post Op Note - Surgeon's Notes Surgeon: Dr. Jeter Spreader Box Operator: Dr. Peterson PGY2 Type of Anesthesia: General Endo Pre-Operative Diagnosis: acute cholecystitis Operative Findings: see operative report Post-Operative Diagnosis: see operative report Operation Performed: laparoscopic cholecystectomy Specimen/Specimens Removed: gallbladder Estimated Blood Loss: EBL {In ML}: 30 Blood Products Given: N/A Drains Used: No Drains Post-Op Condition: Good Date of Surgery/Procedure: 07/30/17 Time of Surgery/Procedure: 15:20
[2017-07-30] MEDS ORDERED: HYDROmorphone 0.5 mg/0.5 ml ISec IVP PRN (17:41)
[2017-07-30] MEDS ORDERED: Albuterol-Ipratrop 3 mg / 0.5 (3 ml) UD INH PRN (17:43)
--- NOTE | 2017-07-30 21:51 | CP.PCM.HP ---
Past Patient History - Infectious Disease Hx of Infectious Diseases: None - Past Medical History & Family History Past Medical History?: Yes - Past Social History Smoking Status: Former Smoker Alcohol: Occasional Drugs: Denies - CARDIAC Hx Hypertension: Yes - PULMONARY Hx Asthma: Yes - NEUROLOGICAL Hx Neurological Disorder: No - HEENT Hx HEENT Problems: No - RENAL Hx Chronic Kidney Disease: No - ENDOCRINE/METABOLIC Hx Endocrine Disorders: Yes Hx Diabetes Mellitus Type 2: Yes - HEMATOLOGICAL/ONCOLOGICAL Hx Blood Disorders: No - INTEGUMENTARY Hx Dermatological Problems: No - MUSCULOSKELETAL/RHEUMATOLOGICAL Hx Arthritis: Yes - GASTROINTESTINAL Hx Gastrointestinal Disorders: Yes Other/Comment: DIARRHEA,RECTAL BLEEDING - GENITOURINARY/GYNECOLOGICAL Hx Genitourinary Disorders: No - PSYCHIATRIC Hx Psychophysiologic Disorder: No Hx Substance Use: No - SURGICAL HISTORY Hx Appendectomy: Yes - ANESTHESIA Hx Anesthesia: Yes Hx Anesthesia Reactions: Yes (NAUSEA/VOMITING) Hx Malignant Hyperthermia: No Meds Allergies/Adverse Reactions: Allergies Allergy/AdvReac Type Severity Reaction Status Date / Time No Known Allergies Allergy Verified 04/18/14 09:27 Results - Vital Signs Recent Vital Signs: Last Vital Signs Temp 98 F 07/30/17 21:00 Pulse 93 H 07/30/17 21:00 Resp 20 07/30/17 21:00 BP 114/71 07/30/17 21:00 Pulse Ox 95 07/30/17 21:00 - Labs Result Diagrams: 07/30/17 11:00 07/30/17 11:00 Labs: Laboratory Results - last 24 hr 07/29/17 07/29/17 07/30/17 15:32 20:20 01:37 WBC RBC Hgb Hct MCV MCH MCHC RDW Plt Count Sodium Potassium Chloride Carbon Dioxide Anion Gap BUN Creatinine Est GFR ( Amer) Est GFR (Non-Af Amer) POC Glucose (mg/dL) 147 H Random Glucose Calcium Total Bilirubin AST ALT Alkaline Phosphatase Total Protein Albumin Globulin Albumin/Globulin Ratio Blood Type A POSITIVE Blood Type Confirm A POSITIVE Antibody Screen Negative BBK History Checked No verified bt 07/30/17 07/30/17 07/30/17 06:26 11:00 11:00 WBC 9.6 RBC 5.15 Hgb 14.9 Hct 44.3 MCV 86.2 MCH 28.9 MCHC 33.6 RDW 13.5 Plt Count 214 Sodium 139 Potassium 4.8 Chloride 99 Carbon Dioxide 26 Anion Gap 19 BUN 17 Creatinine 0.6 L Est GFR ( Amer) > 60 Est GFR (Non-Af Amer) > 60 POC Glucose (mg/dL) 134 H Random Glucose 129 H Calcium 8.0 L Total Bilirubin 1.1 AST 49 H D ALT 45 Alkaline Phosphatase 62 Total Protein 7.5 Albumin 3.7 Globulin 3.8 Albumin/Globulin Ratio 1.0 Blood Type Blood Type Confirm Antibody Screen BBK History Checked 07/30/17 07/30/17 11:14 17:39 WBC RBC Hgb Hct MCV MCH MCHC RDW Plt Count Sodium Potassium Chloride Carbon Dioxide Anion Gap BUN Creatinine Est GFR ( Amer) Est GFR (Non-Af Amer) POC Glucose (mg/dL) 128 H 166 H Random Glucose Calcium Total Bilirubin AST ALT Alkaline Phosphatase Total Protein Albumin Globulin Albumin/Globulin Ratio Blood Type Blood Type Confirm Antibody Screen BBK History Checked
[2017-07-30] MEDS: Piperacillin/Tazobact 3.375 GM in Sodium Chloride 0.9% 100 ML IVPB SCH (22:03)
[2017-07-30] MEDS: Insulin Regular 100 units/ml SC SCH (22:25)
[2017-07-31] MEDS: Piperacillin/Tazobact 3.375 GM in Sodium Chloride 0.9% 100 ML IVPB SCH ×2 (03:41→09:11)
[2017-07-31 03:45] VITALS: O2SAT 96
--- NOTE | 2017-07-31 06:34 | CARD ---
APPROVED REPORT EKG Measurement Heart [id number] <Conclusion> Normal sinus rhythm Left axis deviation Abnormal ECG
[2017-07-31] MEDS: Insulin Regular 100 units/ml SC SCH ×2 (07:00→12:22)
--- NOTE | 2017-07-31 07:33 | OP ---
PROCEDURE DATE: 07/30/2017 PREOPERATIVE DIAGNOSES: Symptomatic cholelithiasis, moderate obesity with a body mass index between 45 and 50, hypertension, and diabetes mellitus. POSTOPERATIVE DIAGNOSIS: Acute cholecystitis with cholelithiasis. PROCEDURE PERFORMED: Laparoscopic cholecystectomy. SURGEON: Trevin Jeter MD UNISAW OPERATOR SURGEON: Isauro Peterson, PGY-2 resident. TYPE OF ANESTHESIA: General Anesthesia as well as 0.5% Marcaine local anesthesia. COMPLICATIONS: None. ESTIMATED BLOOD LOSS: 20 mL. ANTIBIOTICS: The patient was given dose of Zosyn within 30 minutes of the Incision, which she was getting on the floor. OPERATIVE FINDINGS: Dilated bulging gallbladder, thickened gallbladder wall, hydropic fluid, and large gallstone. SPECIMENS: biliary fluid for culture; Gallbladder INDICATION FOR OPERATION: This is a 47-year-old female with a past medical history of morbid obesity, hypertension, and diabetes who has one-week complaints of new epigastric right upper quadrant pain postprandial in nature. This young lady actually had gone to the emergency room 2 times in the last 7 days prior to this current admission with similar complaints, over the week her symptoms have progressed to being more constant in the epigastrium as well as right upper quadrant. She has also had nausea and associated vomiting. She has significant right upper quadrant tenderness and a slightly elevated white count on admission. The CAT scan showed evidence of a dilated gallbladder and on right upper quadrant ultrasound, there was evidence of a large 2.5 cm stone in the gallbladder neck. Because of this, she was taken to the operating room for laparoscopic cholecystectomy. Informed consent was obtained prior to going to the operating room. The risks and benefits of the operation were discussed at length with the patient including, but not limited to bleeding, infection, need to convert to open, bile duct injury, injury to nearby structures or bowel. DESCRIPTION OF PROCEDURE: The patient was taken back to the operating room and placed supine on the operating room table. After induction of general anesthesia and successful endotracheal intubation, a Shaikh catheter was placed. The patient was doubly strapped, one across her upper chest and one on her thighs. A body warmer was placed as well. Orogastric tube was also placed. The abdomen was then prepped and draped in sterile fashion. All skin incisions were preanesthetized with 0.5% Marcaine local anesthesia. Access to the abdominal cavity was gained using a 10-mm 0-degree laparoscope with an optical viewing trocar, which was inserted 3 cm above the umbilicus just left at the midline. After direct visualization of the tissue layers, we entered the abdominal cavity. The camera was removed and the abdomen was insufflated. We then reinserted the 10-mm 0-degree scope to evaluate for any injury on entry and there was none. I then switched to a 10-mm 30-degree laparoscope, which was then inserted to the abdomen. The patient was then placed in steep reverse Trendelenburg position with right side up. I then proceeded to place my additional working ports under direct visualization, one 5-mm port was placed lateral in the subcostal region and another 5 mm port was placed more medially in the right upper quadrant subcostal region. I then placed a 12-mm working port in the subxiphoid region again under direct visualization. At this point, we inspected the gallbladder, it was significantly distended and tense. We tried to grasped the fundus with laparoscopic graspers and this was not technically possible. Because of gallbladder was very large and tense through the right medial subcostal port, I inserted a laparoscopic aspiration needle and a gallbladder was aspirated. About 30 mL of clear hydropic and bile tinged fluid was aspirated and evacuated from the bile. The gallbladder was then grasped at the fundus and retracted cephalad and the peritoneum, which stripped off the gallbladder. I started on the lateral aspect releasing the peritoneal attachments as well as the medial aspect coming up both sides of the liver bed. This was done using hook electrocautery. I then turned my attention to anterior dissection of the cystic duct and I continued to dissect until the lower one-third of the gallbladder was successfully dissected off of the cystic plate. I then used a combination of hook electrocautery and blunt dissection with maryland graspers to ensure that we cleared all the fibrofatty tissue from the hepatocystic triangle and in the end, a clinical view of safety was obtained with just 2 structures entering the gallbladder. At that point, a picture was taken with a laparoscopic documentation. The cystic duct and artery were dissected, 3 clips were placed on a cystic duct, 2 on the stay side and 1 on the specimen side and the duct was then transected. Next, the cystic artery was isolated in similar fashion and 2 clips were placed on the stay side and 1 on the specimen side. Next, the gallbladder was dissected free off of the liver bed using electrocautery. Once it was completely removed from a liver bed, gallbladder was then placed into a 10-mm endo catch bag and removed through the subxiphoid port. We did encounter that there was a large stone at the neck of the gallbladder and during specimen removal, the fascial opening was too small to allow for passage of the specimen with a large gallstone. I then opened up the fascia a little bit using Daria clamps for separation, this did not work in the process. The specimen bag had torn, but the specimen was intact with no leakage. I then cut down on the anterior fascia, which allowed us to retrieve the specimen completely intact. There was no leakage of bile or gallbladder contents into the wound. After the gallbladder was removed, we went back and removed a Ray-Ta sponge that we had previously placed when there was some bleeding noted during the dissection of the lateral liver attachments. Once this was removed, we then inspected the liver bed and hemostasis was obtained using electrocautery. The abdomen was then irrigated with about 500 mL of normal saline and aspirate was clear. I did directly visualize one last time the clips placed on cystic duct and cystic artery stumps, these were intact. There was no evidence of bleeding. Next, I used an 0 Vicryl suture on a needle passer to close the subxiphoid fascial defect. Two simple interrupted sutures were placed under direct vision without any injury or incidents. Next, the ports were removed under direct visualization and the wounds were all irrigated with saline and the skin was then closed with 4-0 Monocryl suture. Skin incisions were then dressed with Dermabond. The patient tolerated the procedure well. Sponge and instrument counts were correct at the end of the case. The patient was extubated in the operating room without event and transferred to recovery in stable condition. I was present for the entire of the operation. Trevin Jeter MD [facility]
[2017-07-31] MEDS ORDERED: Lidocaine 5% Patch TD SCH (09:00)
[2017-07-31 11:26] VITALS: BP 124/80; PULSE 81; RESP 18; TEMP 98.1
--- NOTE | 2017-07-31 11:34 | CP.PCM.PN ---
Subjective - Date & Time of Evaluation Date of Evaluation: 07/31/17 Time of Evaluation: 11:31 - Subjective Subjective: Surgery Pt underwent surgery yesterday. Tolerated it well. Denies Fever, nausea, vomiting. Tolerating diet. Pain controlled. Objective - Vital Signs/Intake and Output Vital Signs (last 24 hours): Temp Pulse Resp BP Pulse Ox 98.1 F 81 18 124/80 96 07/31/17 10:00 07/31/17 10:00 07/31/17 10:00 07/31/17 10:00 07/31/17 10:00 - Medications Medications: Current Medications Albuterol/Ipratropium (Duoneb 3 Mg/0.5 Mg (3 Ml) Ud) 3 ml INH RQ6 PRN PRN Reason: Shortness of Breath Docusate Sodium (Colace) 100 mg PO BID [facility] Last Admin: 07/31/17 09:09 Dose: 100 mg Heparin Sodium (Porcine) (Heparin) 5,000 units SC Q8 ROLANDO PRN Reason: Protocol Last Admin: 07/31/17 09:09 Dose: 5,000 units Hydromorphone HCl (Dilaudid) 0.5 mg IVP Q6 PRN PRN Reason: Pain, severe (8-10) Lactated Ringer's (Lactated Ringer's) 1,000 mls @ 150 mls/hr IV .Q6H40M [facility] Last Admin: 07/30/17 05:38 Dose: 150 mls/hr Piperacillin Sod/Tazobactam (Sod 3.375 gm/ Sodium Chloride) 100 mls @ 100 mls/ hr IVPB Q6 ROLANDO PRN Reason: Protocol Last Admin: 07/31/17 09:11 Dose: 100 mls/hr Lactated Ringer's (Lactated Ringer's) 1,000 mls @ 100 mls/hr IV .Q10H [facility] Insulin Human Regular (Humulin R) 0 units SC ACCU-CHECK [facility] PRN Reason: Protocol Last Admin: 07/31/17 07:00 Dose: Not Given Lidocaine (Lidoderm) 1 ea TD DAILY [facility] Last Admin: 07/31/17 09:10 Dose: 1 ea Ondansetron HCl (Zofran Odt) 4 mg PO Q8H PRN PRN Reason: Nausea/Vomiting Pantoprazole Sodium (Protonix Inj) 40 mg IVP DAILY [facility] Last Admin: 07/31/17 09:11 Dose: 40 mg Tramadol HCl (Ultram) 50 mg PO Q6 PRN PRN Reason: Pain, moderate (4-7) - Labs Labs: 07/30/17 11:00 07/30/17 11:00 PT 1.1 Seconds (9.8-13.1) L 07/29/17 20:20 INR 1.1 (0.9-1.2) 07/29/17 20:20 APTT 31.7 Seconds (25.6-37.1) 07/29/17 20:20 - Constitutional Appears: No Acute Distress - Head Exam Head Exam: ATRAUMATIC, NORMAL INSPECTION, NORMOCEPHALIC - Eye Exam Eye Exam: EOMI, Normal appearance, PERRL Pupil Exam: NORMAL ACCOMODATION, PERRL - ENT Exam ENT Exam: Mucous Membranes Moist, Normal Exam - Neck Exam Neck Exam: Full ROM, Normal Inspection. absent: Lymphadenopathy - Respiratory Exam Respiratory Exam: Clear to Ausculation Bilateral, NORMAL BREATHING PATTERN - Cardiovascular Exam Cardiovascular Exam: REGULAR RHYTHM, +S1, +S2. absent: Murmur - GI/Abdominal Exam GI & Abdominal Exam: Soft, Normal Bowel Sounds. absent: Distended, Tenderness Additional comments: Incision C/D/I - Exam Exam: NORMAL INSPECTION - Extremities Exam Extremities Exam: Full ROM, Normal Capillary Refill, Normal Inspection. absent : Joint Swelling, Pedal Edema - Back Exam Back Exam: NORMAL INSPECTION - Neurological Exam Neurological Exam: Alert, Awake, CN II-XII Intact, Normal Gait, Oriented x3 - Psychiatric Exam Psychiatric exam: Normal Affect, Normal Mood - Skin Skin Exam: Dry, Intact, Normal Color, Warm Assessment and Plan - Assessment and Plan (Free Text) Assessment: POD 1 s/p lap skip -Clear for DC for surgical standpoint. -Pain control -F/U at Dr. Jeter's office in 1-2 week -Ok to take shower tomorrow -Keep glue on -No heavy lifting for [address] Jeter
[2017-07-31 13:27] LABS: BASO % 0.2 % (0.0-2.0); EOS % 0.1 % (0.0-4.0); HEMOGLOBIN 14.4 g/dL (12.0-16.0); LYMPH # 1.7 K/uL (1.0-4.3); LYMPH % 13.3 % (20.0-40.0); MEAN CELL VOLUME 85.6 fl (81.0-99.0); MEAN CORPUSCULAR HEMOGLOBIN 29.1 pg (27.0-31.0); MEAN CORPUSCULAR HGB CONC 33.9 g/dL (33.0-37.0); MONO # 0.6 K/uL (0.0-0.8); NEUT # 10.3 K/uL (1.8-7.0); NEUT % 81.4 % (50.0-75.0); NRBC % 0.1 % (0.0-0.0); RBC 4.97 Mil/uL (3.80-5.20); RED CELL DISTRIBUTION WIDTH 13.3 % (11.5-14.5); WHITE BLOOD COUNT 12.6 K/uL (4.8-10.8)
[2017-07-31 14:12] LABS: BLOOD UREA NITROGEN 14 mg/dl (7-17); CALCIUM 8.9 mg/dL (8.4-10.2); GFR AFRICAN-AMERICAN > 60; GFR NON-AFRICAN AMERICAN > 60
[2017-07-31 14:13] LABS: ALB/GLOB RATIO 1.1 (1.0-2.1); ALT/SGPT 85 U/L (9-52); AST/SGOT 64 U/L (14-36)
--- NOTE | 2017-08-02 02:32 | CP.PCM.DIS ---
Provider - Provider Date of Admission: 07/29/17 19:10 Attending physician: Demian Costa MD Time Spent in preparation of Discharge (in minutes): 35 Hospital Course - Lab Results Lab Results: Most Recent Lab Values WBC 12.6 K/uL (4.8-10.8) H 07/31/17 12:45 RBC 4.97 Mil/uL (3.80-5.20) 07/31/17 12:45 Hgb 14.4 g/dL (12.0-16.0) 07/31/17 12:45 Hct 42.5 % (34.0-47.0) 07/31/17 12:45 MCV 85.6 fl (81.0-99.0) 07/31/17 12:45 MCH 29.1 pg (27.0-31.0) 07/31/17 12:45 MCHC 33.9 g/dL (33.0-37.0) 07/31/17 12:45 RDW 13.3 % (11.5-14.5) 07/31/17 12:45 Plt Count 272 K/uL (130-400) 07/31/17 12:45 MPV 8.0 fl (7.2-11.7) 07/31/17 12:45 Neut % (Auto) 81.4 % (50.0-75.0) H 07/31/17 12:45 Lymph % (Auto) 13.3 % (20.0-40.0) L 07/31/17 12:45 [place] % (Auto) 5.0 % (0.0-10.0) 07/31/17 12:45 Eos % (Auto) 0.1 % (0.0-4.0) 07/31/17 12:45 Baso % (Auto) 0.2 % (0.0-2.0) 07/31/17 12:45 Neut # (Auto) 10.3 K/uL (1.8-7.0) H 07/31/17 12:45 Lymph # (Auto) 1.7 K/uL (1.0-4.3) 07/31/17 12:45 [place] # (Auto) 0.6 K/uL (0.0-0.8) 07/31/17 12:45 Eos # (Auto) 0.0 K/uL (0.0-0.7) 07/31/17 12:45 Baso # (Auto) 0.0 K/uL (0.0-0.2) 07/31/17 12:45 PT 1.1 Seconds (9.8-13.1) L 07/29/17 20:20 INR 1.1 (0.9-1.2) 07/29/17 20:20 APTT 31.7 Seconds (25.6-37.1) 07/29/17 20:20 pO2 23 mm/Hg (30-55) L 07/29/17 15:57 VBG pH 7.40 (7.32-7.43) 07/29/17 15:57 VBG pCO2 51 mmHg (40-60) 07/29/17 15:57 VBG HCO3 27.7 mmol/L 07/29/17 15:57 VBG Total CO2 33.2 mmol/L (22-28) H 07/29/17 15:57 VBG O2 Sat (Calc) 46.2 % (40-65) 07/29/17 15:57 VBG Base Excess 5.5 mmol/L (0.0-2.0) H 07/29/17 15:57 VBG Potassium 3.7 mmol/L (3.6-5.2) 07/29/17 15:57 Sodium 136.0 mmol/L (132-148) 07/29/17 15:57 Chloride 99.0 mmol/L (98-107) 07/29/17 15:57 Glucose 165 mg/dL (65-105) H 07/29/17 15:57 Lactate 1.8 mmol/L (0.7-2.1) 07/29/17 15:57 FiO2 21.0 % 07/29/17 15:57 Sodium 138 mmol/l (132-148) 07/31/17 12:45 Potassium 3.4 MMOL/L (3.6-5.0) L 07/31/17 12:45 Chloride 97 mmol/L (98-107) L 07/31/17 12:45 Carbon Dioxide 28 mmol/L (22-30) 07/31/17 12:45 Anion Gap 16 (10-20) 07/31/17 12:45 BUN 14 mg/dl (7-17) 07/31/17 12:45 Creatinine 0.7 mg/dl (0.7-1.2) 07/31/17 12:45 Est GFR ( Amer) > 60 07/31/17 12:45 Est GFR (Non-Af Amer) > 60 07/31/17 12:45 POC Glucose (mg/dL) 212 mg/dL (65-110) H 07/31/17 11:03 Random Glucose 178 mg/dL (65-105) H 07/31/17 12:45 Calcium 8.9 mg/dL (8.4-10.2) 07/31/17 12:45 Total Bilirubin 0.6 mg/dl (0.2-1.3) 07/31/17 12:45 AST 64 U/L (14-36) H D 07/31/17 12:45 ALT 85 U/L (9-52) H D 07/31/17 12:45 Alkaline Phosphatase 88 U/L (38-126) 07/31/17 12:45 Troponin I 0.0500 ng/mL (0.00-0.120) 07/29/17 15:39 Total Protein 7.6 G/DL (6.3-8.2) 07/31/17 12:45 Albumin 4.0 g/dL (3.5-5.0) 07/31/17 12:45 Globulin 3.6 gm/dL (2.2-3.9) 07/31/17 12:45 Albumin/Globulin Ratio 1.1 (1.0-2.1) 07/31/17 12:45 Lipase 79 U/L (23-300) 07/29/17 15:39 Venous Blood Potassium 3.7 mmol/L (3.6-5.2) 07/29/17 15:57 Stool H. pylori Ag Not detected (Not Detected) 07/29/17 11:25 H. pylori Source Stool 07/29/17 11:25 Blood Type A POSITIVE 07/29/17 20:20 Blood Type Confirm A POSITIVE 07/30/17 01:37 Antibody Screen Negative 07/29/17 20:20 BBK History Checked No verified bt 07/29/17 20:20 Discharge Exam - Head Exam Head Exam: ATRAUMATIC, NORMAL INSPECTION, NORMOCEPHALIC Discharge Plan - Discharge Medications Prescriptions: Amoxicillin/Clavulanate [Augmentin 875 MG-125 MG] 1 tab PO Q12 #10 tab Lidocaine 5% [Lidoderm] 1 ea TD DAILY #14 patch traMADol [Ultram] 50 mg PO Q6 #20 tab - Follow Up Plan Condition: FAIR Disposition: HOME/ ROUTINE Instructions: Type 2 Diabetes, Diabetes Exchange Diet, Cholecystectomy, Laparoscopic Surgery, Cholecystitis (DC) Additional Instructions: follow up with Dr Jeter and pmd 1 week -Ok to take shower tomorrow -Keep glue on -No heavy lifting for 1 month Referrals: Jose David Friedman MD [Staff Provider] - Trevin Jeter MD [Staff Provider] -
== END 2017-07-31 15:00 | disposition home or self-care (01) | DRG 494 ==
LOC: H.ER 14:06 → H.ERHOLD 19:10 → H.MEDSURG1 20:44
PROVIDERS: ADMIT Internal Medicine; ATTEND Internal Medicine
PROC: 0FT44ZZ Resection of Gallbladder, Percutaneous Endoscopic Approach (ICD-10-PCS; principal; 2017-07-30 14:30)
DX: K80.00 Calculus of gallbladder with acute cholecystitis without obstruction (principal); E11.9 Type 2 diabetes mellitus without complications; E66.9 Obesity, unspecified; Z68.42 Body mass index [BMI] 45.0-49.9, adult; I10 Essential (primary) hypertension; J45.909 Unspecified asthma, uncomplicated; K29.70 Gastritis, unspecified, without bleeding; K44.9 Diaphragmatic hernia without obstruction or gangrene; K52.9 Noninfective gastroenteritis and colitis, unspecified; K76.0 Fatty (change of) liver, not elsewhere classified; K80.10 Calculus of gallbladder with chronic cholecystitis without obstruction; Z87.891 Personal history of nicotine dependence

== ENCOUNTER 2018-05-30 18:45 | Emergency (ER) | payer MEDICAID ==
[2018-05-30 18:46] VITALS: BMI 46.0
[2018-05-30 19:11] VITALS: BP 143/74; PULSE 81; RESP 18; TEMP 98.5; O2SAT 98
--- NOTE | 2018-05-30 20:57 | ED PDOC ---
HPI: Female Pain Time Seen by Provider: 05/30/18 20:11 Chief Complaint (Nursing): Female Genitourinary Chief Complaint (Provider): Female Genitourinary History Per: Patient History/Exam Limitations: no limitations Onset/Duration Of Symptoms: Days (x2) Current Symptoms Are (Timing): Still Present Associated Symptoms: Urinary Symptoms (Burning with urination and increased frequency). denies: Fever, Chills, Nausea, Vomiting, Diarrhea, Other (abnormal vaginal bleeding or discharge) Additional Complaint(s): 48 year old female with a past medical history of diabetes presents to the ED for evaluation of burning with urination and increased urinary frequency beginning last night. Patient states that she has had a history of UTI's with similar symptoms, her last UTI was x6 months ago. Patient denies taking any medications prior to arrival. Patients denies fevers, chills, abdominal pain, hematuria, vaginal bleeding or discharge, nausea, vomiting, and diarrhea. Last known menstral period: more than 1 year ago. PMD: Jose David Friedman MD Past Medical History Reviewed: Historical Data, Nursing Documentation, Vital Signs Vital Signs: Last Vital Signs Temp 98.5 F 05/30/18 19:07 Pulse 81 05/30/18 19:07 Resp 18 05/30/18 19:07 BP 143/74 05/30/18 19:07 Pulse Ox 98 05/30/18 19:07 JACK Report Viewed: Yes - Medical History PMH: Arthritis, Asthma, Diabetes, HTN - Surgical History Surgical History: Appendectomy, Cholecystectomy, Other surgeries: Plate in neck, tubal ligation - Family History Family History: States: Diabetes, Hypertension - Living Arrangements Living Arrangements: With Family - Home Medications Home Medications: Ambulatory Orders Medication Instructions Recorded Valsartan [Diovan] 320 mg PO DAILY 04/18/14 Metformin HCl 1,000 mg PO BID 10/15/15 Metoprolol Succinate XL [Toprol XL] 50 mg PO DAILY 10/15/15 Naproxen [Naprosyn] 500 mg PO BID 10/15/15 SITagliptin [Januvia] 50 mg PO DAILY 10/15/15 Esomeprazole Magnesium [Nexium] 20 mg PO QAM #30 ecc 07/27/17 Amoxicillin/Clavulanate [Augmentin 1 tab PO Q12 #10 tab 07/31/17 875 MG-125 MG] Lidocaine 5% [Lidoderm] 1 ea TD DAILY #14 patch 07/31/17 traMADol [Ultram] 50 mg PO Q6 #20 tab 07/31/17 Nitrofurantoin Macrocrystals 100 mg PO BID #14 cap 05/30/18 [Macrobid] Phenazopyridine [Pyridium] 200 mg PO PRN PRN #4 tab 05/30/18 - Allergies Allergies/Adverse Reactions: Allergies Allergy/AdvReac Type Severity Reaction Status Date / Time No Known Allergies Allergy Verified 05/30/18 19:11 Review of Systems ROS Statement: Except As Marked, All Systems Reviewed And Found Negative Constitutional: Negative for: Fever, Chills Gastrointestinal: Negative for: Nausea, Vomiting, Abdominal Pain, Diarrhea Genitourinary Female: Positive for: Frequency (Increased), Other (Burning with urination). Negative for: Hematuria, Vaginal Discharge, Vaginal Bleeding Physical Exam - Reviewed Nursing Documentation Reviewed: Yes Vital Signs Reviewed: Yes - Physical Exam Comments: GENERAL APPEARANCE: Patient is awake, alert, oriented x 3, in no acute distress. Resting comfortably. SKIN: Warm, dry; (-) cyanosis. EYES: (-) conjunctival injection ENMT: Mucous membranes moist. Airway patent: (-) stridor. NECK: Supple, FROM CHEST AND RESPIRATORY: (-) wheezing; (-) rales, (-) rhonchi; breath sounds equal bilaterally. Respirations even and nonlabored. HEART AND CARDIOVASCULAR: (-) irregularity ABDOMEN AND GI: Soft; (-) tenderness (-) distention (-) guarding (-) CVA tender ness. BACK: (-) midline tenderness NEURO AND PSYCH: Mental status as above; (-) focal findings. Gait: steady. Speech: clear. (-) facial asymmetry (-) aphasia. (+) normal cognition - Laboratory Results Urine POC: Negative - ECG O2 Sat by Pulse Oximetry: 98 (RA) Pulse Ox Interpretation: Normal Medical Decision Making Medical Decision Makin:10 Clinical Impression: 48 year old female presents to the ED with increased urinary frequency and burning with urination. Initial Plan: * ED Urine (POC) * Pyridium 200 mg PO ONCE * Urine Culture * Urinalysis 2140 U/A reviewed (+) UTI (+) glucose > 500 Macrobid 100mg PO and accucheck ordered. Upreg: negative 2144 Accucheck: 213 On re-evaluation, patient reports improvement of symptoms. On exam, patient remains AAOx3, in no acute distress. Vitals stable. Lab/Diagnostic results d/w the patient in great detail. Diagnosis of UTI d/w the patient. Based on history, exam and diagnostic results, plan will be for outpatient follow up with PMD. Patient instructed to follow-up with pmd / referral provided / the clinic in 1- 2 days without fail. Advised to take medication as prescribed. Return to the emergency room at any time for any new or worsening symptoms. Patient states she fully agrees with and understands discharge instructions. States that she agrees with the plan and disposition. Verbalized and repeated discharge instructions and plan. I have given the patient opportunity to ask any additional questions. Scribe Attestation: Documented by Lev Arthur, acting as a scribe for Lina Dial PA-C. Provider Scribe Attestation: All medical record entries made by the Scribe were at my direction and personally dictated by me. I have reviewed the chart and agree that the record accurately reflects my personal performance of the history, physical exam, medical decision making, and the department course for this patient. I have also personally directed, reviewed, and agree with the discharge instructions and disposition. Disposition - Clinical Impression Clinical Impression: Urinary tract infection - Patient ED Disposition Is Patient to be Admitted: No Counseled Patient/Family Regarding: Studies Performed, Diagnosis, Need For Followup, Rx Given - Disposition Referrals: Jose David Friedman MD [Family Provider] - Disposition: Routine/Home Disposition Time: 21:45 Condition: STABLE Additional Instructions: The emergency medical care you received today was directed at your acute symptoms. If you were prescribed any medication, please fill it and take as directed. It may take several days for your symptoms to resolve. Return to the Emergency Department if your symptoms worsen, do not improve, or if you have any other problems. Please contact your doctor in 2 days for re-evaluation and follow up / or call one of the physicians/clinics you have been referred to that are listed on the Patient Visit Information form that is included in your discharge packet. Bring any paperwork you were given at discharge with you along with any medications you are taking to your follow up visit. Our treatment cannot replace ongoing medical care by a primary care provider (PCP) outside of the emergency department. Prescriptions: Nitrofurantoin Macrocrystals [Macrobid] 100 mg PO BID #14 cap Phenazopyridine [Pyridium] 200 mg PO PRN PRN #4 tab PRN Reason: urinary discomfort Instructions: Urinary Tract Infections in Adults Forms: [employer] (Botswanan) Print Language: URDU - POA Present On Arrival: Poor Glycemic Control Results - Lab Results Lab Results: 05/30/18 20:58 Urine Color Yellow Urine Clarity Clear Urine pH 6.0 Ur Specific [place] 1.033 H Urine Protein Negative Urine Glucose (UA) >=500 Urine Ketones Negative Urine Blood Small Urine Nitrate Negative Urine Bilirubin Negative Urine Urobilinogen 0.2-1.0 Ur Leukocyte Esterase Trace Urine RBC (Auto) 5 H Urine Microscopic WBC 3 Ur Squamous Epith Cells < 1
[2018-05-30 21:36] LABS: SQUAMOUS EPITHIAL < 1 /hpf (0-5); URINE BILIRUBIN NEGATIVE (NEGATIVE); URINE BLOOD SMALL (NEGATIVE); URINE CLARITY CLEAR (Clear); URINE COLOR YELLOW (YELLOW); URINE GLUCOSE (UA) >=500 mg/dL (NEGATIVE); URINE LEUKOCYTE ESTERASE TRACE Leu/uL (Negative); URINE PROTEIN NEGATIVE (NEGATIVE); URINE UROBILINOGEN 0.2-1.0 mg/dL (0.2-1.0)
== END 2018-05-30 22:12 | disposition home or self-care (01) ==
LOC: H.ER 18:45
DX: N39.0 Urinary tract infection, site not specified (principal)

== ENCOUNTER 2018-06-11 12:12 | Emergency (ER) | payer MEDICAID ==
[2018-06-11 13:43] VITALS: BMI 45.4
--- NOTE | 2018-06-11 14:00 | ED PDOC ---
HPI: Female Pain Time Seen by Provider: 06/11/18 13:40 Chief Complaint (Provider): Burning and urinary frequency History Per: Patient History/Exam Limitations: no limitations Onset/Duration Of Symptoms: Days Current Symptoms Are (Timing): Still Present Associated Symptoms: Urinary Symptoms Additional History Per: Patient Additional Complaint(s): 48yo female, with history of hypertension, diabetes, comes to ER reporting urinary frequency and burning upon urination. Patient states she was seen here 1 week ago, was diagnosed with a UTI and treated with antibiotics. Patient states she finished the medications however the symptoms still persist; patient reports feeling "raw and itchy" and states she was in a lot of discomfort, prompting ER visit. She denies any back pain, hematuria, or abdominal pain. No additional complaints. Of note, patient states she is sexually active, does not use condoms; she is amenable to get tested but does not wish treatment. PMD: None Abnormal Vaginal Bleeding: No Last Menstral Period: 1 year ago; patient menopausal Past Medical History Reviewed: Historical Data, Nursing Documentation, Vital Signs - Medical History PMH: Arthritis, Asthma, Diabetes, HTN Denies: Chronic Kidney Disease - Surgical History Surgical History: Appendectomy, Cholecystectomy, - Family History Family History: States: Unknown Family Hx, Diabetes, Hypertension - Social History Current smoker - smoking cessation education provided: No Alcohol: None Drugs: Denies - Immunization History Hx Tetanus Toxoid Vaccination: No Hx Influenza Vaccination: No Hx Pneumococcal Vaccination: No - Home Medications Home Medications: Ambulatory Orders Medication Instructions Recorded Valsartan [Diovan] 320 mg PO DAILY 04/18/14 Metformin HCl 1,000 mg PO BID 10/15/15 Metoprolol Succinate XL [Toprol XL] 50 mg PO DAILY 10/15/15 Naproxen [Naprosyn] 500 mg PO BID 10/15/15 SITagliptin [Januvia] 50 mg PO DAILY 10/15/15 Esomeprazole Magnesium [Nexium] 20 mg PO QAM #30 ecc 07/27/17 Amoxicillin/Clavulanate [Augmentin 1 tab PO Q12 #10 tab 07/31/17 875 MG-125 MG] Lidocaine 5% [Lidoderm] 1 ea TD DAILY #14 patch 07/31/17 traMADol [Ultram] 50 mg PO Q6 #20 tab 07/31/17 Nitrofurantoin Macrocrystals 100 mg PO BID #14 cap 05/30/18 [Macrobid] Phenazopyridine [Pyridium] 200 mg PO PRN PRN #4 tab 05/30/18 Cephalexin [Keflex] 500 mg PO TID 7 Days #21 capsule 06/11/18 Clotrimazole 1% Vaginal [Lotrimin 1 unit VG DAILY 7 Days #1 tube 06/11/18 1% Vaginal] - Allergies Allergies/Adverse Reactions: Allergies Allergy/AdvReac Type Severity Reaction Status Date / Time No Known Allergies Allergy Verified 05/30/18 19:11 Physical Exam - Reviewed Nursing Documentation Reviewed: Yes - Physical Exam Comments: SKIN: Warm, dry; (-) cyanosis. CHEST AND RESPIRATORY: (-) wheezing; (-) rales, (-) rhonchi, (-) rub; breath sounds equal bilaterally. HEART AND CARDIOVASCULAR: (-) irregularity; (-) murmur, (-) gallop. ABDOMEN AND GI: Soft, (-) tenderness (+)normal bowel sounds (-) CVAT EXTREMITIES: (-) deformity. Medical Decision Making Medical Decision Making: Urinary symptoms, vaginal burning and irritation Plan: -- Urinalysis, urine culture Patient seen in ER on 05/30, discharged home with macrobid 1500 UA results reviewed, with small leukocytes, white blood cells as well Urine culture sent; GC/Chalmydia test sent as well Patient to be treated for a UTI as well as vaginal candidiasis. Patient instructed to take medications as prescribed and to follow up at [facility]. Stable for discharge home. Discussed results, diagnosis, treatment, return precautions and f/u with pt who is understanding, in agreement and stable for dc Scribe Attestation: Documented by Tina Leggett, acting as a scribe for GRACE Venegas. Provider Scribe Attestation: All medical record entries made by the Scribe were at my direction and personally dictated by me. I have reviewed the chart and agree that the record accurately reflects my personal performance of the history, physical exam, medical decision making, and the department course for this patient. I have also personally directed, reviewed, and agree with the discharge instructions and disposition. Disposition - Clinical Impression Clinical Impression: Urinary tract infection, Candidal vulvovaginitis - Patient ED Disposition Is Patient to be Admitted: No Counseled Patient/Family Regarding: Studies Performed, Diagnosis, Need For Followup, Rx Given - Disposition [facility] Disposition: Routine/Home Disposition Time: 15:00 Condition: STABLE Additional Instructions: Return to ED for new or worsening symptoms, fever >100.4, abdominal pain, back pain, vomiting. Follow up with your primary or OBGYN in 3-5 days. Take medications as prescribed. Prescriptions: Cephalexin [Keflex] 500 mg PO TID 7 Days #21 capsule Clotrimazole 1% Vaginal [Lotrimin 1% Vaginal] 1 unit VG DAILY 7 Days #1 tube Instructions: Vulvovaginal Yeast Infection, Urinary Tract Infections in Adults Forms: Right On [employer] (Bots[place]an), [facility] School/Work Excuse Print Language: BERMUDIAN - POA Present On Arrival: None
[2018-06-11 14:52] LABS: SQUAMOUS EPITHIAL 8 /hpf (0-5); URINE BACTERIA RARE (<OCC); URINE BILIRUBIN NEGATIVE (NEGATIVE); URINE BLOOD SMALL (NEGATIVE); URINE CLARITY SLIGHTY-CLOUDY (Clear); URINE COLOR YELLOW (YELLOW); URINE GLUCOSE (UA) >=500 mg/dL (NEGATIVE); URINE HYALINE CAST 0-2 /hpf (0-2); URINE LEUKOCYTE ESTERASE SMALL Leu/uL (Negative); URINE PROTEIN 30 mg/dL (NEGATIVE); URINE UROBILINOGEN 0.2-1.0 mg/dL (0.2-1.0)
[2018-06-11 15:56] VITALS: BP 150/64; PULSE 63; RESP 20; TEMP 97.7; O2SAT 98
== END 2018-06-11 15:57 | disposition home or self-care (01) ==
LOC: H.EDDOWN 12:12 → H.ER 12:12
DX: N39.0 Urinary tract infection, site not specified (principal); B37.3 Candidiasis of vulva and vagina; E11.9 Type 2 diabetes mellitus without complications; I10 Essential (primary) hypertension